=== PATIENT | male | born 1970 | race Caucasian/White ===

== ENCOUNTER 2024-05-09 13:01 | Emergency (ER) | payer OTHER ==
[2024-05-09] MEDS ORDERED: Ketorolac Tromethamine 30 MG (1 mL) VIAL ONE (14:34)
== END 2024-05-09 14:41 | disposition home or self-care (01) ==
LOC: ERS 13:01
DX: M79.642 Pain in left hand (principal); I10 Essential (primary) hypertension
CPT/HCPCS: 96372; 99283; J1885